=== PATIENT | male | born 1960 | race Caucasian/White ===

== ENCOUNTER 2022-01-18 18:01 | Inpatient (IN) | payer OTHER ==
[2022-01-18] MEDS ORDERED: morphine CARPU-JECT 4 MG/1 ML DISP.SYRIN IVPUSH ONE (20:12)
[2022-01-18 20:47] LABS: EOS % 0.2 % (0-4.5); HEMATOCRIT 26.9 % (35.4-49); HEMOGLOBIN 8.5 GM/dL (11.7-16.9); LYMPH % 9.6 % (8-40); MCH 25.4 pg (25.7-33.7); MCHC 31.5 g/dl (32.0-35.9); MEAN CELL VOLUME 80.8 fl (80-96); MEAN PLT VOLUME 8.3 fl (7.5-11.1); MONO % 5.2 % (3.8-10.2); PLATELET COUNT 247 10^3/uL (134-434); RBC 3.33 M/mm3 (4.00-5.60); RDW 21.6 % (11.9-15.9); WHITE BLOOD COUNT 6.1 K/mm3 (4.0-10.0)
[2022-01-18 20:48] LABS: INR 1.23 (0.83-1.09); PROTHROMBIN TIME (PATIENT) 14.2 SEC (9.7-13.0)
[2022-01-18 20:50] LABS: ACTIVATED PTT 33.8 SECONDS (25.2-36.5)
[2022-01-18 21:05] LABS: CALCIUM 8.6 mg/dL (8.5-10.1)
[2022-01-18 21:06] LABS: ALBUMIN 1.5 g/dl (3.4-5.0); BLOOD UREA NITROGEN 9.4 mg/dL (7-18)
[2022-01-18] MEDS ORDERED: DEXTROSE 5%-NORMAL SALINE 1,000 ML IV ONE (21:07)
[2022-01-18 21:09] LABS: BILIRUBIN,TOTAL 1.9 mg/dL (0.2-1); CREATININE 0.6 mg/dL (0.55-1.3); PHOSPHOROUS 3.5 mg/dL (2.5-4.9); TOT PROT 7.4 g/dl (6.4-8.2)
[2022-01-18] MEDS ORDERED: morphine SULFATE 4 MG/ML VIAL ONE (22:01)
[2022-01-18 23:16] LABS: ANISOCYTOSIS 2+; MACROCYTOSIS 0
[2022-01-18 23:46] LABS: URINE APPEARANCE CLEAR; URINE BILIRUBIN 2+ (NEGATIVE); URINE COLOR DK YELLOW; URINE GLUCOSE (UA) NEGATIVE (NEGATIVE); URINE KETONE TRACE (NEGATIVE); URINE LEUK ESTERASE NEGATIVE (NEGATIVE); URINE NITRITE NEGATIVE (NEGATIVE); URINE PROTEIN TRACE (NEGATIVE); URINE UROBILINOGEN >=8.0 E.U./dl mg/dL (0.2-1.0)
[2022-01-19 09:15] VITALS: RESP 18
[2022-01-19 09:27] VITALS: BMI 20.7
[2022-01-19] MEDS: ENOXAPARIN NA (PORCINE) 40 MG/0.4 ML DISP.SYRIN SQ SCH (10:30)
[2022-01-19 11:16] LABS: BASO % 0.2 % (0-2.0); EOS % 0.3 % (0-4.5); HEMATOCRIT 25.5 % (35.4-49); HEMOGLOBIN 8.1 GM/dL (11.7-16.9); LYMPH % 4.5 % (8-40); MCH 25.8 pg (25.7-33.7); MEAN CELL VOLUME 80.8 fl (80-96); MEAN PLT VOLUME 7.7 fl (7.5-11.1); MONO % 7.4 % (3.8-10.2); NEUT % 87.6 % (42.8-82.8); PLATELET COUNT 208 10^3/uL (134-434); RBC 3.15 M/mm3 (4.00-5.60); RDW 21.8 % (11.9-15.9); WHITE BLOOD COUNT 5.3 K/mm3 (4.0-10.0)
[2022-01-19 11:39] LABS: ALBUMIN 1.3 g/dl (3.4-5.0); BLOOD UREA NITROGEN 8.6 mg/dL (7-18); CALCIUM 8.5 mg/dL (8.5-10.1)
[2022-01-19 11:41] LABS: CREATININE 0.5 mg/dL (0.55-1.3); PHOSPHOROUS 3.8 mg/dL (2.5-4.9)
[2022-01-19 11:43] LABS: BILIRUBIN,TOTAL 1.9 mg/dL (0.2-1)
[2022-01-19 11:44] LABS: TOT PROT 6.4 g/dl (6.4-8.2)
[2022-01-19] MEDS ORDERED: ALBUTEROL SO4 HFA INHALER IH PRN (14:32)
[2022-01-19] MEDS: DULoxetine HCL 20 MG CAPSULE.DR PO SCH (16:07)
[2022-01-19] MEDS: SULFAMETHOXAZOLE/TRIMETHOPRIM 800MG/160MG D.S. TABLET PO SCH (16:07)
[2022-01-19] MEDS: DEXTROSE 5%-NORMAL SALINE 1,000 ML IV SCH (18:01)
[2022-01-20 08:53] LABS: BASO % 0.3 % (0-2.0); EOS % 0.1 % (0-4.5); HEMATOCRIT 24.3 % (35.4-49); HEMOGLOBIN 7.8 GM/dL (11.7-16.9); LYMPH % 6.5 % (8-40); MCH 25.9 pg (25.7-33.7); MCHC 32.1 g/dl (32.0-35.9); MEAN CELL VOLUME 80.7 fl (80-96); MEAN PLT VOLUME 7.9 fl (7.5-11.1); MONO % 7.3 % (3.8-10.2); NEUT % 85.8 % (42.8-82.8); PLATELET COUNT 229 10^3/uL (134-434); RBC 3.01 M/mm3 (4.00-5.60); RDW 21.7 % (11.9-15.9); WHITE BLOOD COUNT 5.6 K/mm3 (4.0-10.0)
[2022-01-20 09:13] LABS: CALCIUM 8.3 mg/dL (8.5-10.1)
[2022-01-20 09:15] LABS: ALBUMIN 1.2 g/dl (3.4-5.0); BLOOD UREA NITROGEN 10.1 mg/dL (7-18); MAGNESIUM 2.1 mg/dL (1.8-2.4)
[2022-01-20 09:18] LABS: CREATININE 0.5 mg/dL (0.55-1.3)
[2022-01-20 09:20] LABS: BILIRUBIN,TOTAL 1.9 mg/dL (0.2-1); TOT PROT 6.4 g/dl (6.4-8.2)
[2022-01-20] MEDS: DULoxetine HCL 20 MG CAPSULE.DR PO SCH (10:40)
[2022-01-20] MEDS: ENOXAPARIN NA (PORCINE) 40 MG/0.4 ML DISP.SYRIN SQ SCH (10:40)
[2022-01-20] MEDS: SULFAMETHOXAZOLE/TRIMETHOPRIM 800MG/160MG D.S. TABLET PO SCH (10:40)
[2022-01-20] MEDS: DEXTROSE 5%-NORMAL SALINE 1,000 ML IV SCH (17:05)
[2022-01-20 22:32] VITALS: BP 125/79; PULSE 102; TEMP 99.2
== END 2022-01-20 22:00 | disposition short-term general hospital (02) | DRG 394 ==
LOC: JER 18:01 → JERBED 21:21 → J5S 01-19 07:53
PROVIDERS: ADMIT Internal Medicine; ATTEND Internal Medicine
DX: K94.09 Other complications of colostomy (principal); C18.9 Malignant neoplasm of colon, unspecified; C78.00 Secondary malignant neoplasm of unspecified lung; C78.7 Secondary malignant neoplasm of liver and intrahepatic bile duct; E87.1 Hypo-osmolality and hyponatremia; N39.0 Urinary tract infection, site not specified; K63.2 Fistula of intestine; Z86.16 Personal history of COVID-19; E88.09 Other disorders of plasma-protein metabolism, not elsewhere classified; Y83.8 Other surgical procedures as the cause of abnormal reaction of the patient, or of later complication, without mention of misadventure at the time of the procedure
CPT/HCPCS: 36415; 71045-TC-FY; 74177-TC; 80053; 81003; 83605; 83735; 84100; 85025; 85610; 85730; 86850; 86900; 86901; 87086; 93005; 93010; 99285-25; C9803-CS; Q9967; U0003; U0005